=== PATIENT | female | born 1975 | race African-American/Black ===

== ENCOUNTER 2017-10-19 19:45 | Emergency (ER) | payer BC ==
--- NOTE | 2017-10-19 20:48 | RAD REPORT ---
EXAM DESCRIPTION: RAD - Foot Right 3 View - 10/19/2017 8:27 pm CLINICAL HISTORY: Trauma, pain COMPARISON: None. FINDINGS: Subluxation is seen involving DIP joint of the fourth toe with a small fracture fragment s uspected. Mild soft tissue swelling is noted. Prominent plantar calcaneal spur is seen.
[2017-10-19] MEDS ORDERED: BUPIVACAINE 0.5% PF 10 ML VIAL ONE (20:58)
[2017-10-19] MEDS ORDERED: LIDOCAINE 1% MPF 5 ML VIAL ONE (20:58)
--- NOTE | 2017-10-19 21:35 | EDPHYS ---
Physician Documentation [facility] Name: Dasha Bonds Age: 42 yrs Sex: Female : 1975 Arrival Date: 10/19/2017 Time: 19:48 Bed 28 Private MD: ED Physician Bruce Hood HPI: 10/19 20:49 This 42 yrs old Black Female presents to ER via Ambulatory with complaints of Toe kb Injury. 20:49 The patient presents with a deformity, an injury, pain, swelling, tenderness. The kb complaints affect the right foot. Context: The problem was sustained at home, resulted from the patient tripping, the patient can fully bear weight, the patient is able to ambulate, without difficulty. Onset: The symptoms/episode began/occurred 2 day(s) ago. Modifying factors: The symptoms are alleviated by nothing, the symptoms are aggravated by nothing. Associated signs and symptoms: Pertinent positives: swelling, Pertinent negatives: calf tenderness, fever, nausea, numbness, rash, tingling, vomiting, warmth, weakness. Severity of symptoms: At their worst the symptoms were mild, moderate, in the emergency department the symptoms are unchanged. The patient has not experienced similar symptoms in the past. The patient has not recently seen a physician. 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 - Social history:: Smoking status: Patient/guardian denies using tobacco. ROS: 20:48 Constitutional: Negative for fever, chills, and weight loss, Cardiovascular: Negative kb for chest pain, palpitations, and edema, Respiratory: Negative for shortness of breath, cough, wheezing, and pleuritic chest pain, Abdomen/GI: Negative for abdominal pain, nausea, vomiting, diarrhea, and constipation, Skin: Negative for injury, rash, and discoloration, Neuro: Negative for headache, weakness, numbness, tingling, and seizure. 20:48 MS/extremity: Positive for injury or acute deformity, deformity, swelling, of the right fourth toe. Exam: 20:48 Constitutional: This is a well developed, well nourished patient who is awake, alert, kb and in no acute distress. Head/Face: Normocephalic, atraumatic. Chest/axilla: Normal chest wall appearance and motion. Nontender with no deformity. No lesions are appreciated. Cardiovascular: Regular rate and rhythm with a normal S1 and S2. No gallops, murmurs, or rubs. Normal PMI, no JVD. No pulse deficits. Respiratory: Lungs have equal breath sounds bilaterally, clear to auscultation and percussion. No rales, rhonchi or wheezes noted. No increased work of breathing, no retractions or nasal flaring. Abdomen/GI: Soft, non-tender, with normal bowel sounds. No distension or tympany. No guarding or rebound. No evidence of tenderness throughout. Skin: Warm, dry with normal turgor. Normal color with no rashes, no lesions, and no evidence of cellulitis. Neuro: Awake and alert, GCS 15, oriented to person, place, time, and situation. Cranial nerves II-XII grossly intact. Motor strength 5/5 in all extremities. Sensory grossly intact. Cerebellar exam normal. Normal gait. 20:48 Musculoskeletal/extremity: Extremities: grossly normal except: noted in the right fourth toe: deformity, swelling, tenderness, ROM: intact in all extremities, Circulation is intact in all extremities. Sensation intact. Weight bearing: able to fully bear weight. Vital Signs: 19:57 BP 114 / 71; Pulse 84; Resp 15; Temp 98.4(TE); Pulse Ox 99% on R/A; Weight 71.67 kg lk1 (R); Height 5 ft. 4 in. (162.56 cm) (R); Pain 4/10; 21:45 BP 112 / 76; Pulse 72; Resp 18; Pulse Ox 99% ; aj1 19:57 Body Mass Index 27.12 (71.67 kg, 162.56 cm) lk1 Procedures: 21:05 Nerve block: (digital) of plantar aspect of right fourth toe Medication: Lidocaine 1% kb without epinephrine Marcaine 0.5%, Amount: 4 mls were injected, Effect: the patient has resolution of the pain, Set up for procedure. Performed by Yara CARTER Patient tolerated well. 21:34 Reduction: of the right fourth toe, using traction, Immobilized with taped to third kb toe. Patient tolerated well. MDM: 20:45 Patient medically screened. kb 20:48 Data reviewed: vital signs, nurses notes. Data interpreted: Pulse oximetry: on room air kb is 99 %. Interpretation: normal. Counseling: I had a detailed discussion with the patient and/or guardian regarding: the historical points, exam findings, and any diagnostic results supporting the discharge/admit diagnosis, radiology results, the need for outpatient follow up, a orthopedic surgeon, to return to the emergency department if symptoms worsen or persist or if there are any questions or concerns that arise at home. 10/19 20:07 Order name: Foot Right 3 View XRAY; Complete Time: 20:51 lk1 Administered Medications: No medications were administered Disposition: 10/20 06:44 Co-signature as Attending Physician, Bruce Hood MD Available for consultation at ps1 all times. . Disposition: 10/19/17 21:34 Discharged to Home. Impression: Unspecified dislocation of right toe(s). - Condition is Stable. - Discharge Instructions: Toe Dislocation, [id number]. - Medication Reconciliation Form, Thank You Letter, Antibiotic Education, Prescription Opioid Use form. - Follow up: Emergency Department; When: As needed; Reason: Worsening of condition. Follow up: Private Physician; When: 2 - 3 days; Reason: Recheck today's complaints, Continuance of care, Re-evaluation by your physician. Signatures: Dispatcher [employer] Yara Wright, EMMA ADENP-Leonila Falcon, RN RN aj1 Valarie Blum RN RN lk1 Bruce Hood MD MD ps1
--- NOTE | 2017-10-19 21:35 | ER ---
Nurse's Notes [facility] Name: Dasha Bonds Age: 42 yrs Sex: Female : 1975 Arrival Date: 10/19/2017 Time: 19:48 Bed 28 Private MD: Diagnosis: Unspecified dislocation of right toe(s) Presentation: 10/19 19:55 Presenting complaint: Patient states: "I tripped and my feet went backwards about 2 lk1 days ago. My 4th toe on my right foot hurts really bad.". Transition of care: patient was not received from another setting of care. Onset of symptoms was October 17, 2017. Initial Sepsis Screen: Does the patient meet any 2 criteria? No. Patient's initial sepsis screen is negative. Does the patient have a suspected source of infection? No. Patient's initial sepsis screen is negative. Care prior to arrival: None. 19:55 Method Of Arrival: Ambulatory lk1 19:55 Acuity: MIC 4 lk1 Triage Assessment: 19:57 General: Appears in no apparent distress. Behavior is calm, cooperative, appropriate lk1 for age. Pain: Complains of pain in right foot Pain currently is 4 out of 10 on a pain scale. 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 - Social history:: Smoking status: Patient/guardian denies using tobacco. Screenin:51 Abuse screen: Denies threats or abuse. Denies injuries from another. Nutritional aj1 screening: No deficits noted. Tuberculosis screening: No symptoms or risk factors identified. Fall Risk None identified. Assessment: 21:50 General: Appears in no apparent distress. comfortable, Behavior is calm, cooperative, aj1 appropriate for age. Pain: Complains of pain in right fourth toe Pain does not radiate. Pain currently is 2 out of 10 on a pain scale. Neuro: Level of Consciousness is awake, alert, obeys commands, Oriented to person, place, time, situation, Speech is normal, Facial symmetry appears normal. Cardiovascular: Patient's skin is warm and dry. Respiratory: Airway is patent Respiratory effort is even, unlabored, Respiratory pattern is regular, symmetrical. GI: No signs and/or symptoms were reported involving the gastrointestinal system. : No signs and/or symptoms were reported regarding the genitourinary system. EENT: No signs and/or symptoms were reported regarding the EENT system. Derm: Skin is normal. Musculoskeletal: Circulation, motion, and sensation intact. Capillary refill < 3 seconds, in bilateral toes. Bony deformity noted of right fourth toe. Vital Signs: 19:57 BP 114 / 71; Pulse 84; Resp 15; Temp 98.4(TE); Pulse Ox 99% on R/A; Weight 71.67 kg lk1 (R); Height 5 ft. 4 in. (162.56 cm) (R); Pain 4/10; 21:45 BP 112 / 76; Pulse 72; Resp 18; Pulse Ox 99% ; aj1 19:57 Body Mass Index 27.12 (71.67 kg, 162.56 cm) lk1 ED Course: 19:48 Patient arrived in ED. rg4 19:56 Triage completed. lk1 19:59 Arm band placed on right wrist. lk1 20:19 Patient moved to radiology walked. kc2 20:26 Yara Ventura FNP-C is [facility]. kb 20:26 Bruce Hood MD is Attending Physician. kb 20:27 Foot Right 3 View XRAY In Process Unspecified. EDMS 20:29 X-ray completed. Portable x-ray completed in exam room. Patient tolerated procedure bb2 well. 20:42 Trinidad Garcia, RN is Primary Nurse. kr2 21:51 Patient has correct armband on for positive identification. Bed in low position. Call aj1 light in reach. Side rails up X 1. 21:51 No provider procedures requiring assistance completed. Patient did not have IV access aj1 during this emergency room visit. Administered Medications: No medications were administered Outcome: 21:34 Discharge ordered by . kb 21:52 Discharged to home ambulatory. aj1 21:52 Condition: good 21:52 Discharge instructions given to patient, Instructed on discharge instructions, follow up and referral plans. Demonstrated understanding of instructions, follow-up care. 21:53 Patient left the ED. aj1 Signatures: Dispatcher [employer] EDMS Yara Ventura FNP-C FNP-Ckb Johnson, Angela, RN RN aj1 Valarie Blum RN RN lk1 Shirley Bacon kc2 Arabella Jarrell rg4 Trinidad Garcia RN RN kr2 Carmen Greer bb2 Corrections: (The following items were deleted from the chart) 21:49 Discharged to home ambulatory, [place] [id number] 21:49 Condition: good [place] [id number] 21:49 Discharge instructions given to patient, Instructed on discharge instructions, aj follow up and referral plans. Demonstrated understanding of instructions, follow-up care, [facility]
== END 2017-10-19 21:53 | disposition home or self-care (01) ==
LOC: ER 19:45
PROC: 0SSPXZZ Reposition Right Toe Phalangeal Joint, External Approach (ICD-10-PCS; principal; 2017-10-19)
PROC: 3E0T3BZ Introduction of Anesthetic Agent into Peripheral Nerves and Plexi, Percutaneous Approach (ICD-10-PCS; 2017-10-19)
DX: S93.114A Dislocation of interphalangeal joint of right lesser toe(s), initial encounter (principal); W18.39XA Other fall on same level, initial encounter; Y92.9 Unspecified place or not applicable
CPT/HCPCS: 64450; 99283